=== PATIENT | female | born 1945 | race Caucasian/White ===

== ENCOUNTER 2018-12-29 13:51 | Emergency (ER) | payer MEDICARE ==
--- OUTSIDE RECORDS SUMMARY | 2018-12-29 13:58 | XMS REPORT | Continuity of Care Document ---
:1945 External Reference #:[id number] Author Name Bella Oneal PA (transmitted by agent of provider Gael Taylor) Address [address] [facility], [address] [place] [address] Care Team Providers Name Role Phone Bella Oneal PA - Physician Care Team Information Licensed Esthetician [phone] Cloud Developer Problems Active Problems Provider Date Female climacteric state Onset: 07/14/2003 Osteochondropathy Pato Noel M.D. Onset: 07/14/2003 Acute hepatitis C Pato Noel M.D. Onset: 07/14/2003 Chronic rhinitis Pato Noel M.D. Onset: 07/14/2003 Extrapyramidal disease Pato Noel M.D. Onset: 07/14/2004 Medication-induced movement disorder Pato Noel M.D. Onset: 2015 Restless legs Bella Oneal PA Onset: 12/01/2016 Chronic hepatitis C Bella Oneal PA Onset: 12/01/2016 Social History Type Date Description Comments Sex Unknown Tobacco Use Reviewed: 12/06/18 Tobacco Of Any Kind Denies Use Smoking Status Reviewed: 12/06/18 Tobacco Of Any Kind Denies Use ETOH Use Denies alcohol use Recreational Drug Use 12/06/2018 Denies Drug Use Tobacco Use Start: Unknown Patient has never smoked Enjoy Exercising Enjoys exercising Stretching, Walking, Hiking, Snowshoeing. Exercise Type/Frequency Exercises regularly Sun Exposure moderate amount of sun exposure Sun Exposure Does not use sunscreen Seat Belt/Car Seat always uses seat belt Guns in Home No Allergies, Adverse Reactions, Alerts Description No Known Drug Allergies Medications Active Medications SIG Qnty Indications Ordering Provider Date Ropinirole HCL 1 tab by mouth at 30tabs G25.81 Ras Teran, 12/06/2018 0.25mg bedtime for M.DWayne Tablets restless legs Multi-Vitamin Daily Pato Vega 06/23/2011 Tablets Jas Noel Calcium 600+D 2 a day M85.80 Pato Vega 07/05/2009 Jas Noel [id number] Tablets Medications Administered in Office Medication SIG Qnty Indications Ordering Provider Date H1N1 Swine Flu Vaccine Pato Noel M.D. 05/22/2009 Injection Immunizations CPT Code Status Date Vaccine Lot # [id number] Given 01/30/2018 Influenza Vaccine Split Virus Preservative Free [place] Use 00609 Given 03/09/2017 Influenza Vaccine Split Virus Preservative Free Im [id number] Use 94479 Given 02/18/2015 Influenza Vaccine Split Virus Preservative Free Im [id number] Use 43635 Given 10/21/2014 Prevnar 13 [id number] 59886 Given 02/18/2014 Influenza Vaccine Split Virus Preservative Free Im Use 15460 Given 02/21/2013 Flu, Split Virus 3Yrs [id number] 05639 Given 08/15/2012 Zostavax [id number] 58122 Given 02/22/2012 Flu, Split Virus 3Yrs [id number] 30624 Given 01/31/2011 Pneumococcal Immunization [id number] 28548 Given 01/31/2011 Flu, Split Virus 3Yrs [id number] 86970 Given 04/06/2010 Flu, Split Virus 3Yrs [id number] 99045 Given 01/22/2010 Adacel or Boostrix, TDaP [id number] 13636 Given 02/17/2009 Flu, Split Virus 3Yrs [id number] 83864 Given 03/03/2008 Flu, Split Virus 3Yrs [id number] 10098 Given 03/29/2007 Flu, Split Virus 3Yrs [id number] 52717 Given 04/04/2006 Flu, Split Virus 3Yrs [id number] 44076 Given 05/27/2005 Td Immunization Td-[id number] 40742 Given 03/17/2005 Flu, Split Virus 3Yrs 63601 Given 04/21/2003 Flu, Split Virus 3Yrs 60655 Given 05/15/1993 Td Immunization Vital Signs Date Vital Result Comment 12/06/2018 1:11pm BP Systolic 116 mmHg BP Diastolic 64 mmHg Height 64 inches 5'4" Weight 121.00 lb BMI (Body Mass Index) 20.8 kg/m2 12/05/2017 2:02pm BP Systolic 100 mmHg BP Diastolic 60 mmHg Height 64 inches 5'4" w/shoes Weight 120.00 lb w/shoes BMI (Body Mass Index) 20.6 kg/m2 Results Test Date Facility Test Result H/L Range Note Urinalysis Profile 12/17/2018 [facility] Urine Color Yellow [phone] Urine Appearance Clear Urine Specific [place] 1.011 Normal 1.010-1.030 Urine pH 6.0 Normal 5-9 Urine Urobilinogen Negative Negative Urine Ketones Negative Negative Urine Protein Negative Negative Urine Leukocytes Negative Negative Urine Blood Negative Negative Urine Nitrite Negative Negative Urine Bilirubin Negative Negative Urine Glucose Negative Negative CBC Auto Diff 12/11/2018 [facility] White Blood 5.5 10^3/uL Normal 3.5-10.8 [phone] Count Red Blood Count 4.40 10^6/uL Normal 3.70-4.87 Hemoglobin 14.3 g/dL Normal 12.0-16.0 Hematocrit 42 % Normal 35-47 Mean Corpuscular Volume 95 fL Normal 80-97 Mean Corpuscular Hemoglobin 32 pg High 27-31 Mean Corpuscular HGB Conc 34 g/dL Normal 31-36 Red Cell Distribution Width 13 % Normal 10-15 Platelet Count 132 10^3/uL Low 150-450 Mean Platelet Volume 10.9 fL High 7.4-10.4 Abs Neutrophils 3.8 10^3/uL Normal 1.5-7.7 Abs Lymphocytes 1.2 10^3/uL Normal 1.0-4.8 Abs Monocytes 0.4 10^3/uL Normal 0-0.8 Abs Eosinophils 0.1 10^3/uL Normal 0-0.6 Abs Basophils 0.1 10^3/uL Normal 0-0.2 Abs Nucleated RBC 0.0 10^3/uL Granulocyte % 67.9 % Lymphocyte % 22.4 % Monocyte % 6.6 % Eosinophil % 1.8 % Basophil % 1.3 % Nucleated Red Blood Cells % 0.0 Lipid Profile (Trig/Chol/HDL) 12/11/2018 [facility] Triglycerides 64 mg /dL 7 [phone] Cholesterol 157 mg/dL 2 HDL Cholesterol 72.9 mg/dL 3 LDL Cholesterol 71 mg/dL 4 Comp Metabolic Panel 12/11/2018 [facility] Sodium 141 mmol/L Normal 135-145 [phone] Potassium 4.1 mmol/L Normal 3.5-5.0 Chloride 105 mmol/L Normal 101-111 Co2 Carbon Dioxide 29 mmol/L Normal 22-32 Anion Gap 7 mmol/L Normal 2-11 Glucose 89 mg/dL Normal 70-100 Blood Urea Nitrogen 16 mg/dL Normal 6-24 Creatinine 0.69 mg/dL Normal 0.51-0.95 BUN/Creatinine Ratio 23.2 High 8-20 Calcium 9.3 mg/dL Normal 8.6-10.3 Total Protein 6.9 g/dL Normal 6.4-8.9 Albumin 4.1 g/dL Normal 3.2-5.2 Globulin 2.8 g/dL Normal 2-4 Albumin/Globulin Ratio 1.5 Normal 1-3 Total Bilirubin 0.50 mg/dL Normal 0.2-1.0 Alkaline Phosphatase 37 U/L Normal 34-104 Alt 32 U/L Normal 7-52 Ast 31 U/L Normal 13-39 Egfr Non- 83.6 >60 Egfr 101.2 >60 5 Laboratory test 12/11/2018 [facility] Hemoglobin A1c 5.8 % High 4.0- 5.6 6 finding [phone] (Glyco HGB) Vitamin D Total 25(Oh) 57.5 ng/mL High 20-50 7 Laboratory 12/11/2018 [facility] Hepatitis C [id number] Abnormal Undetected 8 test finding [phone] Rna Quant IU/mL 1 Desirable: <150 Borderline High: 150-199 High: 200-499 Very High: >500 2 Desirable: <200 Borderline High: 200-239 High: >239 3 Low: <40 Desirable: 40-60 High: >60 4 Desirable: <100 Near Optimal: 100-129 Borderline High: 130-159 High: 160-189 Very High: >189 5 Because ethnic data is not always readily available, this report includes an eGFR for both -Americans and non- Americans. The National Kidney Disease Education Program (NKDEP) does not endorse the use of the MDRD equation for patients that are not between the ages of 18 and 70, are , have extremes of body size, muscle mass, or nutritional status, or are non- or non-. According to the National Kidney Foundation, irrespective of diagnosis, the stage of the disease is based on the level of kidney function: Stage Description GFR(mL/min/1.73 m(2)) 1 Kidney damage with normal or decreased GFR 90 2 Kidney damage with mild decrease in GFR 60-89 3 Moderate decrease in GFR 30-59 4 Severe decrease in GFR 15-29 5 Kidney failure <15 (or dialysis) 6 Therapeutic target for the treatment of diabetes mellitus patients is <7% HBA1C, and in selective patients <6.0%. Please refer to [place] Diabetes Association diabetic care guidelines for further information. 7 Total 25-Hydroxyvitamin D2 and D3 (25-OH-VitD) <10 ng/mL (severe deficiency) 10-19 ng/mL (mild to moderate deficiency) 20-50 ng/mL (optimum levels) 51-80 ng/mL (increased risk of hypercalciuria) >80 ng/mL (toxicity possible) 8 Result in log IU/mL is 6.54. ADDITIONAL INFORMATION The quantification range of this assay is 15 to 100,000,000 IU/mL (1.18 log to 8.00 log IU/mL). Testing was performed using the you HCV test ([employer] with the you Hopscot.ch0 System. Test Performed by: [address] [address] Procedures Date Code Description Status 12/01/2016 767281608 Bone Mineral Density Test Completed Medical Devices Description No Information Available Encounters Description No Information Available Assessments Date Code Description Provider 12/06/2018 Z00.00 Encounter for general adult medical examination Bella Oneal PA without abnormal findings 12/06/2018 Z12.31 Encounter for screening mammogram for malignant Bella Oneal PA neoplasm of breast 12/06/2018 G25.81 Restless legs syndrome Bella Oneal PA 12/06/2018 B18.2 Chronic viral hepatitis C Bella Oneal PA 12/06/2018 Z68.20 Body mass index (BMI) 20.0-20.9, adult Bella Oneal PA Plan of Treatment 12/06/2018 - Bella Oneal, PAZ00.00 Encounter for general adult medical examination without abnormal findingsComments:Healthy 72 year old female. Screening updated.Z12.31 Encounter for screening mammogram for malignant neoplasm of breastComments:Mammogram due--ordered.G25.81 Restless legs syndromeNew Medication:Ropinirole HCL 0.25 mg - 1 tab by mouth at bedtime for restless legsComments:Trial of ropinirole. Recheck if sx not improving.B18.2 Chronic viral hepatitis CComments:Asymptomatic Hep C carrier. Will recheck labs.Z68.20 Body mass index (BMI) 20.0-20.9, adult Functional Status Description No Information Available Mental Status Description No Information Available Referrals Description No Information Available
--- OUTSIDE RECORDS SUMMARY | 2018-12-29 13:58 | XMS REPORT | Continuity of Care Document ---
:1945 External Reference #:[id number] Author Name Janelle Nelson MD Address [address] [place] [id number] Care Team Providers Name Role Phone Ras Teran MD Care Team Information Mental Tester [phone] Problems Description No Information Available Social History Type Date Description Comments Sex Unknown Tobacco Use Start: Unknown Patient has never smoked Smoking Status Reviewed: 12/18/18 Patient has never smoked Allergies, Adverse Reactions, Alerts Description No Known Drug Allergies Medications Active Medications SIG Qnty Indications Ordering Provider Date One-A-Day Womens Formula Unknown Calcium Unknown Immunizations Description No Information Available Vital Signs Date Vital Result Comment 12/18/2018 8:54am Height 64 inches 5'4" Weight 121.00 lb BP Systolic 139 mmHg BP Diastolic 97 mmHg Heart Rate 72 /min BMI (Body Mass Index) 20.8 kg/m2 Results Test Date Facility Test Result H/L Range Note Laboratory test 12/18/2018 [facility] Hepatitis C <pending> finding Genotyping QN PCR Hepatitis A Igg AB QL Eia Ser <pending> Hepatitis B Surface AB Titer <pending> Hepatitis B Surface Ag <pending> Laboratory test 12/11/2018 [facility] Hepatitis C Rna <pending> finding Ser/PLS QN PCR Laboratory test 12/11/2018 [facility] Hemoglobin A1c <pending> finding (!) CMP And Lipid 12/11/2018 [facility] Misc Other Test <pending> CBC Auto Diff 12/11/2018 N2N[facility] White Blood Count 5.5 10^3/uL 3.5-10. 8 Red Blood Count 4.40 10^6/uL 3.70-4.87 Hemoglobin 14.3 g/dL 12.0-16.0 Hematocrit 42 % 35-47 Mean Corpuscular Volume 95 fL 80-97 Mean Corpuscular Hemoglobin 32 pg High 27-31 Mean Corpuscular HGB Conc 34 g/dL 31-36 Red Cell Distribution Width 13 % 10-15 Platelet Count 132 10^3/uL Low 150-450 Mean Platelet Volume 10.9 fL High 7.4-10.4 Abs Neutrophils 3.8 10^3/uL 1.5-7.7 Abs Lymphocytes 1.2 10^3/uL 1.0-4.8 Abs Monocytes 0.4 10^3/uL 0-0.8 Abs Eosinophils 0.1 10^3/uL 0-0.6 Abs Basophils 0.1 10^3/uL 0-0.2 Abs Nucleated RBC 0.0 10^3/uL Granulocyte % 67.9 % Lymphocyte % 22.4 % Monocyte % 6.6 % Eosinophil % 1.8 % Basophil % 1.3 % Nucleated Red Blood Cells % 0.0 1 Lipid Profile (Trig/Chol/HDL) 12/11/2018 [facility] Triglycerides 64 mg /dL 1 Cholesterol 157 mg/dL 2 HDL Cholesterol 72.9 mg/dL 3 LDL Cholesterol 71 mg/dL 4 Lab Results 12/11/2018 N2N[facility] Import Sodium 141 mmol/L 135-145 Potassium 4.1 mmol/L 3.5-5.0 Chloride 105 mmol/L 101-111 Co2 Carbon Dioxide 29 mmol/L 22-32 Anion Gap 7 mmol/L 2-11 Glucose 89 mg/dL 70-100 Blood Urea Nitrogen 16 mg/dL 6-24 Creatinine 0.69 mg/dL 0.51-0.95 BUN/Creatinine Ratio 23.2 1 High 8-20 Calcium 9.3 mg/dL 8.6-10.3 Total Protein 6.9 g/dL 6.4-8.9 Albumin 4.1 g/dL 3.2-5.2 Globulin 2.8 g/dL 2-4 Albumin/Globulin Ratio 1.5 1 1-3 Total Bilirubin 0.50 mg/dL 0.2-1.0 Alkaline Phosphatase 37 U/L 34-104 Alt 32 U/L 7-52 Ast 31 U/L 13-39 Egfr Non- 83.6 1 Egfr 101.2 1 5 Hemoglobin A1c (Glyco HGB) 5.8 % High 4.0-5.6 6 Vitamin D Total 25(Oh) 57.5 ng/mL High 20-50 7 Hepatitis C Rna Quant [id number] IU/mL Abnormal 8 Lab Results 12/11/2018 [facility] Hemoglobin A1c (Glyco HGB) 5.8 % High 4.0-5.6 9 Vitamin D Total 25(Oh) 57.5 ng/mL High 20-50 10 Hepatitis C Rna Quant [id number] IU/mL Abnormal 11 Lab Results 12/11/2018 N2N/[facility]D Import Hepatitis C Rna [id number] IU/mL Abnormal 12 Quant 1 Desirable: <150 Borderline High: 150-199 High: [...] 5 Kidney failure <15 (or dialysis) 6 Desirable: <150 Borderline High: 150-199 High: 200-499 Very High: >500 7 Desirable: <200 Borderline High: 200-239 High: >239 8 Desirable: <150 Borderline High: 150-199 High: 200-499 Very High: >500 9 Desirable: <150 Borderline High: 150-199 High: 200-499 Very High: >500 10 Desirable: <200 Borderline High: 200-239 High: >239 11 Desirable: <150 Borderline High: 150-199 High: 200-499 Very High: >500 12 Desirable: <150 Borderline High: 150-199 High: 200-499 Very High: >500 Procedures Description No Information Available Medical Devices Description No Information Available Encounters Description No Information Available Assessments Date Code Description Provider 12/18/2018 B18.2 Chronic viral hepatitis C Janelle Nelson MD 12/18/2018 D69.6 Thrombocytopenia, unspecified Janelle Nelson MD Plan of Treatment No Information Available Functional Status Description No Information Available Mental Status Description No Information Available Referrals Description No Information Available
--- OUTSIDE RECORDS SUMMARY | 2018-12-29 13:58 | XMS REPORT | Continuity of Care Document ---
:1945 External Reference #:[id number] Author Name Bella Oneal PA (transmitted by agent of provider Gael Taylor) Address [address] [facility], [address] [place] [address] Care Team Providers Name Role Phone Bella Oneal PA - Physician Care Team Information Ferry Terminal Agent [phone] Bellows Tester Problems Active Problems Provider Date Female climacteric [...] Calcium 600+D 2 a day M85.80 Pato Vgea 07/05/2009 Jas Noel [id number] Tablets Medications Administered in Office Medication SIG Qnty Indications Ordering Provider Date H1N1 Swine Flu Vaccine Pato Noel M.D. 05/22/2009 Injection Immunizations CPT Code Status Date Vaccine Lot # [id number] Given 01/30/2018 Influenza Vaccine Split Virus Preserv[place] 80379 Given 03/09/2017 Influenza Vaccine Split Virus Preservative Free Im [id number] Use 62391 Given 02/18/2015 Influenza Vaccine Split Virus Preservative Free Im [id number] Use 82524 Given 10/21/2014 Prevnar 13 [id number] 56930 Given 02/18/2014 Influenza Vaccine Split Virus Preservative Free [place] Use 61248 Given 02/21/2013 Flu, Split Virus 3Yrs [id number] 68247 Given 08/15/2012 Zostavax [id number] 05941 Given 02/22/2012 Flu, Split Virus 3Yrs [id number] 98461 Given 01/31/2011 Pneumococcal Immunization [id number] 94404 Given 01/31/2011 Flu, Split Virus 3Yrs [id number] 15106 Given 04/06/2010 Flu, Split Virus 3Yrs [id number] 19166 Given 01/22/2010 Adacel or Boostrix, TDaP [id number] 74912 Given 02/17/2009 Flu, Split Virus 3Yrs [id number] 43791 Given 03/03/2008 Flu, Split Virus 3Yrs [id number] 77412 Given 03/29/2007 Flu, Split Virus 3Yrs [id number] 93119 Given 04/04/2006 Flu, Split Virus 3Yrs [id number] 49438 Given 05/27/2005 Td Immunization [id number] 04332 Given 03/17/2005 Flu, Split Virus 3Yrs 04751 Given 04/21/2003 Flu, Split Virus 3Yrs 70751 Given 05/15/1993 Td Immunization Vital Signs Date [...] Result H/L Range Note Urinalysis Profile 12/17/2018 [facility] Urine Color Yellow [phone] Urine Appearance Clear Urine Specific [place] 1.011 Normal 1.010-1.030 Urine pH 6.0 Normal 5-9 Urine Urobilinogen Negative Negative Urine Ketones Negative Negative Urine Protein Negative Negative Urine Leukocytes Negative Negative Urine Blood Negative Negative Urine Nitrite Negative Negative Urine Bilirubin Negative Negative Urine Glucose Negative Negative CBC Auto Diff 12/11/2018 [facility] White Blood 5.5 10^3/uL Normal 3.5-10.8 [phone] Count Red Blood Count 4.40 10^6/uL Normal [...] Cells % 0.0 Lipid Profile (Trig/Chol/HDL) 12/11/2018 [facility] Triglycerides 64 mg /dL 3 [phone] Cholesterol 157 mg/dL 2 HDL Cholesterol 72.9 mg/dL 3 LDL Cholesterol 71 mg/dL 4 Comp Metabolic Panel 12/11/2018 [facility] Sodium 141 mmol/L Normal 135-145 [phone] Potassium 4.1 mmol/L Normal 3.5-5.0 Chloride 105 [...] Egfr 101.2 >60 5 Laboratory test 12/11/2018 [facility] Hemoglobin A1c 5.8 % High 4.0- 5.6 6 finding [phone] (Glyco HGB) Vitamin D Total 25(Oh) 57.5 ng/mL High 20-50 7 Laboratory 12/11/2018 [facility] Hepatitis C [id number] Abnormal Undetected 8 test finding [phone] Rna Quant IU/mL 1 Desirable: <150 Borderline [...] in selective patients <6.0%. Please refer to [place] Diabetes Association diabetic care guidelines for further [...] was performed using the you HCV test ([employer] with the you [employer] Raiser0 System. Test Performed by: [address] [address] Procedures Date Code Description Status 12/01/2016 [id number] Bone Mineral Density Test Completed Medical Devices [...] Oneal PA Plan of Treatment 12/06/2018 - eBlla Oneal, PAZ00.00 Encounter for general adult medical [...]
--- OUTSIDE RECORDS SUMMARY | 2018-12-29 13:58 | XMS REPORT | Continuity of Care Document ---
:1945 External Reference #:[id number] Author Name Bella Oneal PA (transmitted by agent of provider Gael Taylor) Address [address] [facility], [address] [place] [address] Care Team Providers Name Role Phone Bella Oneal PA - Physician Care Team Information Flatwork Catcher [phone] Athletic Team Physician Problems Active Problems Provider Date Female climacteric [...] day M85.80 Pato Vega 07/05/2009 Jas Noel [id number] Tablets Medications Administered in Office Medication SIG Qnty Indications Ordering Provider Date H1N1 Swine Flu Vaccine Pato Noel M.D. 05/22/2009 Injection Immunizations CPT Code Status Date Vaccine Lot # [id number] Given 01/30/2018 Influenza Vaccine Split Virus Preservative Free Im Use 01116 Given 03/09/2017 Influenza Vaccine Split Virus Preservative Free Im [id number] Use 44977 Given 02/18/2015 Influenza Vaccine Split Virus Preservative Free Im [id number] Use 49496 Given 10/21/2014 Prevnar 13 [id number] 96277 Given 02/18/2014 Influenza Vaccine Split Virus Preservative Free [place] Use 48937 Given 02/21/2013 Flu, Split Virus 3Yrs [id number] 92639 Given 08/15/2012 Zostavax [id number] 15171 Given 02/22/2012 Flu, Split Virus 3Yrs [id number] 82961 Given 01/31/2011 Pneumococcal Immunization [id number] 81003 Given 01/31/2011 Flu, Split Virus 3Yrs [id number] 83644 Given 04/06/2010 Flu, Split Virus 3Yrs [id number] 40600 Given 01/22/2010 Adacel or Boostrix, TDaP [id number] 46495 Given 02/17/2009 Flu, Split Virus 3Yrs [id number] 95100 Given 03/03/2008 Flu, Split Virus 3Yrs [id number] 14815 Given 03/29/2007 Flu, Split Virus 3Yrs [id number] 48970 Given 04/04/2006 Flu, Split Virus 3Yrs [id number] 81424 Given 05/27/2005 Td Immunization [id number]-[id number] 53299 Given 03/17/2005 Flu, Split Virus 3Yrs 74567 Given 04/21/2003 Flu, Split Virus 3Yrs 02110 Given 05/15/1993 Td Immunization Vital Signs Date [...] Result H/L Range Note Urinalysis Profile 12/17/2018 [facility] Urine Color Yellow [phone] Urine Appearance Clear Urine Specific [place] 1.011 Normal 1.010-1.030 Urine pH 6.0 Normal 5-9 Urine Urobilinogen Negative Negative Urine Ketones Negative Negative Urine Protein Negative Negative Urine Leukocytes Negative Negative Urine Blood Negative Negative Urine Nitrite Negative Negative Urine Bilirubin Negative Negative Urine Glucose Negative Negative CBC Auto Diff 12/11/2018 [facility] White Blood 5.5 10^3/uL Normal 3.5-10.8 [phone] Count Red Blood Count 4.40 10^6/uL Normal [...] Cells % 0.0 Lipid Profile (Trig/Chol/HDL) 12/11/2018 [facility] Triglycerides 64 mg /dL 1 [phone] Cholesterol 157 mg/dL 2 HDL Cholesterol 72.9 mg/dL 3 LDL Cholesterol 71 mg/dL 4 Comp Metabolic Panel 12/11/2018 [facility] Sodium 141 mmol/L Normal 135-145 [phone] Potassium 4.1 mmol/L Normal 3.5-5.0 Chloride 105 [...] Egfr 101.2 >60 5 Laboratory test 12/11/2018 [facility] Hemoglobin A1c 5.8 % High 4.0- 5.6 6 finding [phone] (Glyco HGB) Vitamin D Total 25(Oh) 57.5 ng/mL High 20-50 7 Laboratory 12/11/2018 [facility] Hepatitis C [id number] Abnormal Undetected 8 test finding [phone] Rna Quant IU/mL 1 Desirable: <150 Borderline [...] in selective patients <6.0%. Please refer to [place] Diabetes Association diabetic care guidelines for further [...] was performed using the you HCV test ([employer] with the you [employer]0 System. Test Performed by: [address] [address] Procedures Date Code Description Status 12/01/2016 [id number] Bone Mineral Density Test Completed Medical Devices [...]
[2018-12-29 14:12] VITALS: BP 113/68
--- NOTE | 2018-12-29 14:43 | UC ---
Skin Complaint HPI - HPI Summary HPI Summary: Walking her dog this morning off lead, when he engaged in an encounter with a east. She ran through [place] to assist him, scraping her legs superficially both upper and lower legs. Most are very shallow abrasions. She did not have contact with the east, but did get her dog away, who had been biting at the east. The east was gone when she returned to the site. Wounds were washed well prior to visit here with hot soapy water. She was assessed at [facility], and was advised to come to the center for evaluation. - History of Current Complaint Chief Complaint: UCGeneralIllness Time Seen by Provider: 12/29/18 14:35 Stated Complaint: RABIES EXPOSURE Hx Obtained From: Patient Onset/Duration: Sudden Onset Skin Exposure Onset/Duration: Hours Ago Timing: Constant Onset Severity: Mild Current Severity: Mild Pain Intensity: 0 Location: Diffuse Aggravating Factor(s): Nothing Alleviating Factor(s): Nothing Associated Signs & Symptoms: Positive: Negative - Allergy/Home Medications Allergies/Adverse Reactions: Allergies Allergy/AdvReac Type Severity Reaction Status Date / Time No Known Allergies Allergy Verified 12/29/18 14:13 PMH/Surg Hx/FS Hx/Imm Hx Previously Healthy: Yes - Surgical History Surgical History: Yes Surgery Procedure, Year, and Place: BILATERAL CATARACT SURGERY 2009 [facility] [place]. BUNIONECTOMY RIGHT FOOT MINSTER 2007 left wrist pinned, - Social History Alcohol Use: None Substance Use Type: None Smoking Status (MU): Never Smoked Tobacco Review of Systems All Other Systems Reviewed And Are Negative: Yes Constitutional: Positive: Negative Skin: Positive: Other - superficial leg abrasions. Is Patient Immunocompromised?: No Physical Exam Triage Information Reviewed: Yes Appearance: Well-Appearing, No Pain Distress, Well-Nourished Vital Signs: Initial Vital Signs Temp 98 F 12/29/18 14:09 Pulse 72 12/29/18 14:09 Resp 16 12/29/18 14:09 BP 113/68 12/29/18 14:09 Pulse Ox 100 12/29/18 14:09 ENT: Positive: Normal ENT inspection Respiratory: Positive: Lungs clear, Normal breath sounds Cardiovascular: Positive: RRR, No Murmur Skin Exam: Other - Both legs with superficial scratches both anterior thighs and knee areas, with area on right upper thigh with several small crusts, and left lateral suprapatellar area with small abrasions. Skin: Positive: Other - Approx 0.3 ml of RIG administed at superficial wound on left suprapatellar area, with remainder administered IM. Right leg: area of abrasions right anterolateral thigh and right pre-tibial areea each infiltrated with approx 0.3ml, remainder into right anterolateral thigh. Course/Dx - Course Course Of Treatment: RIG and rabies immunization given, with follow up to health department. - Differential Diagnoses - Skin Complaint Differential Diagnoses: Other - rabies exposture. Superficial abrasions. - Diagnoses Provider Diagnosis: Rabies exposure Discharge - Sign-Out/Discharge Documenting (check all that apply): Patient Departure All imaging exams completed and their final reports reviewed: No Studies - Discharge Plan Condition: Good Disposition: HOME Patient Education Materials: Rabies Immune Globulin (By injection), Rabies Vaccine (By injection) Referrals: Bella Oneal PA [Primary Care Provider] - Additional Instructions: Continue follow up with the health department to complete the rabies immunization series. You can use ibuprofen or acetaminophen as needed for discomfort related to the vaccine. - Billing Disposition and Condition Condition: GOOD Disposition: Home
[2018-12-29] MEDS ORDERED: Rabies VIRUS VACCINE (RabAvert)* 2.5 UNITS VIAL IM ONE (14:54)
[2018-12-29] MEDS ORDERED: Rabies Immune Globulin/PF 1ML* 1 ML/300 UNITS VIAL IM ONE (14:55)
== END 2018-12-29 15:40 | disposition home or self-care (01) ==
LOC: UCEAST 13:51
DX: Z29.14 Encounter for prophylactic rabies immune globulin (principal)
CPT/HCPCS: 90375; 90471; 90675; 96372; 99211; G0463

== ENCOUNTER 2021-09-20 07:45 | Inpatient (IN) ==
[~2021-09-20 07:45] MED LIST: Buffered Lidocaine 1% SYRIN 1 ml INTRADERM ONE; Lactated Ringers 1000 ml BAG 1,000 ML IV SCH
[2021-09-20] MEDS ORDERED: Heparin 5000 UNITS/ML 1 mL VIAL ONE (08:10)
[2021-09-20] MEDS ORDERED: Ertapenem 1 GM in NS 0.9% 50 ML IVPB ONE (08:30)
[2021-09-20] MEDS ORDERED: Bupivacaine 0.25% SDV 30 ML ONE (09:33)
[2021-09-20] MEDS ORDERED: Lidocaine 1% w EPI 1:100,000 MDV 20 ML VIAL ONE (09:59)
[2021-09-20] MEDS ORDERED: Lidocaine 4 MG/ML IV PREMIX 2,000 MG/500 ML BAG IV ONE (10:04)
[2021-09-20] MEDS ORDERED: Rocuronium 50 mg VIAL 10 mg/ml 5 ml VIAL (50 mg) ONE ×3 (10:05→11:56)
[2021-09-20] MEDS ORDERED: Propofol 10 MG/ML 20 ML BTL ONE (10:05)
[2021-09-20] MEDS ORDERED: Lidocaine 2% PF 5 ML VIAL ONE (10:05)
[2021-09-20] MEDS ORDERED: Labetalol IV 5 MG/ML 20 ml VIAL ONE (10:51)
[2021-09-20] MEDS ORDERED: Dexamethasone IV 4 MG/ML VIAL 1 ml VIAL ONE (11:04)
[2021-09-20] MEDS ORDERED: EPHEDrine (Pressors) 50 MG/ML VIAL ONE (13:00)
[2021-09-20] MEDS ORDERED: Naloxone 0.4 mg VIAL 0.4 mg/ml 1 ml VIAL IV PRN (13:18)
[2021-09-20] MEDS ORDERED: Haloperidol 5 mg/ml SDV IV/IM 5 MG/ML AMP IV SLOW PU PRN (13:18)
[2021-09-20] MEDS ORDERED: fentaNYL 100 mcg/2 ml 50 MCG/ML VIAL ONE (13:54)
[2021-09-20] MEDS: fentaNYL 100 mcg/2 ml 50 MCG/ML VIAL IV PRN ×3 (13:57→14:32)
[2021-09-20] MEDS ORDERED: Haloperidol 5 mg/ml SDV IV/IM 5 MG/ML AMP ONE (13:58)
[2021-09-20] MEDS ORDERED: Lidocaine 4 MG/ML IV PREMIX 200 MG/50 ML BAG IV SCH (14:00)
[2021-09-20] MEDS ORDERED: HYDROmorphone 0.5 MG/0.5 ML SYRINGE IV SLOW PU PRN (17:04)
[2021-09-20] MEDS: Acetaminophen IV 1 GM/100ML 100 ML IV SCH ×2 (17:52→22:42)
[2021-09-21] MEDS: Acetaminophen IV 1 GM/100ML 100 ML IV SCH ×4 (04:29→23:28)
[2021-09-21 06:02] LABS: ABS Lymphocytes 1.2 10^3/ul (1.0-4.8); ABS Neutrophils 9.6 10^3/ul (1.5-7.7); Hematocrit 37 % (35-47); Hemoglobin 12.4 g/dL (12.0-16.0); Lymphocyte % 9.9 %; Mean Corpuscular HGB Conc 33 g/dL (31-36); Mean Corpuscular Hemoglobin 32 pg (27-31); Mean Corpuscular Volume 94 fL (80-97); Platelet Count 94 10^3/uL (150-450); Red Blood Count 3.95 10^6 /uL (3.70-4.87); Red Cell Distribution Width 13 % (10-15); White Blood Count 11.7 10^3/uL (3.5-10.8)
[2021-09-21 06:16] LABS: Albumin 3.6 g/dL (3.2-5.2); Albumin/Globulin Ratio 1.5 (1-3); Calcium 8.3 mg/dL (8.6-10.3); Globulin 2.4 g/dL (2-4); Potassium 3.8 mmol/L (3.5-5.0); Total Bilirubin 0.5 mg/dL (0.2-1.0); eGFR CKD-EPI 90.4 (>60)
[2021-09-21] MEDS: Enoxaparin 30 MG/0.3 ML SYR SUBCUT SCH (08:45)
[2021-09-22] MEDS: Acetaminophen IV 1 GM/100ML 100 ML IV SCH (06:08)
[2021-09-22 06:26] LABS: ABS Eosinophils 0.1 10^3/ul (0-0.6); ABS Lymphocytes 1.2 10^3/ul (1.0-4.8); ABS Monocytes 0.6 10^3/ul (0-0.8); ABS Neutrophils 6.7 10^3/ul (1.5-7.7); Eosinophil % 0.8 %; Hematocrit 35 % (35-47); Hemoglobin 12.1 g/dL (12.0-16.0); Mean Corpuscular HGB Conc 34 g/dL (31-36); Mean Corpuscular Hemoglobin 32 pg (27-31); Mean Corpuscular Volume 95 fL (80-97); Mean Platelet Volume 11.5 fL (7.4-10.4); Platelet Count 79 10^3/uL (150-450); Red Blood Count 3.74 10^6 /uL (3.70-4.87); Red Cell Distribution Width 13 % (10-15); White Blood Count 8.6 10^3/uL (3.5-10.8)
[2021-09-22 06:40] LABS: Calcium 8.1 mg/dL (8.6-10.3); Potassium 4.1 mmol/L (3.5-5.0); eGFR CKD-EPI 80.4 (>60)
[2021-09-22] MEDS: Enoxaparin 30 MG/0.3 ML SYR SUBCUT SCH ×2 (09:15→09:23)
[2021-09-22 11:25] VITALS: BP 130/80
[2021-10-05 09:03] LABS: Case Number CR-22-27521
== END 2021-09-22 15:30 | disposition home or self-care (01) | DRG 330 ==
LOC: OR 07:45 → SSU 16:53
PROVIDERS: ADMIT Surgery; ATTEND Surgery